=== PATIENT | male | born 1940 | race Caucasian/White ===

== ENCOUNTER 2019-01-30 14:08 | Inpatient (IN) | payer OTHER ==
[~2019-01-30] VITALS: Ht 172.7 cm; Wt 106.7 kg
--- NOTE | 2019-01-30 14:10 | NUR ---
PT BIBA FOR INCREASED EXACERBATION OF SOB THAT HAS BEEN PROGRESSIVELY GETTING WORSE FOR ONE MONTH. PT STS HE WAS WALKING INTO THE HOUSE FROM CAR WHEN HE FELT DIZZY AND FELT LIKE HE WASN'T GOING TO MAKE IT. PTS CALLED 911; PT STS CHEST HURTS IN THE CENTER AND RADIATES TO R AND L SHOULDER WITH INCREASED PAIN UPON PALPATION; PT STS PAIN IS ALSO EXACERBATED WHILE ANY PHYSICAL MOVEMENT OCCURS. AAOX4, RESPS E/U; DENIES N/V/D/C; CONNECTED TO FULL CM; CHANGED INTO GOWN, AWAITING MSE
--- NOTE | 2019-01-30 14:21 | NUR ---
EKG IN PROGRESS
--- NOTE | 2019-01-30 15:46 | NUR ---
PT EDUCATED ON MEDICATION PER EMAR, VERBALIZED UNDERSTANDING. MEDICATED AND TOLERATED WELL.
[2019-01-30 16:08] LABS: BASOPHIL % 0.8 % (0-2)
[2019-01-30 16:09] LABS: PLATELET COUNT 108 x10^3mcL (130-400); RED CELL DISTRIBUTION WIDTH 16.9 % (11.5-14.5)
[2019-01-30 16:31] LABS: CALCIUM 9.1 mg/dL (8.5-10.1); CARBON DIOXIDE 22.5 mmol/L (21-32); CHLORIDE SERUM 101 mmol/L (98-107); CREATININE SERUM 1.8 mg/dL (0.7-1.3); POTASSIUM SERUM 5.3 mmol/L (3.5-5.1); SODIUM SERUM 135 mmol/L (136-145)
[2019-01-30 16:32] LABS: ALKALINE PHOSPHATASE 235 U/L (46-116); ALT/SGPT 15 U/L (16-63); AST/SGOT 18 U/L (15-37); BILIRUBIN TOTAL 0.8 mg/dL (0.20-1.00)
[2019-01-30 16:33] LABS: ALBUMIN 3.2 g/dL (3.4-5.0)
[2019-01-30] MEDS ORDERED: KEFLEX500 M1 PO (16:45)
[2019-01-30] MEDS ORDERED: METFORMIN500 M1 PO (16:45)
[2019-01-30] MEDS ORDERED: APAP/OXYCODONE1 TA3 PO (16:45)
[2019-01-30] MEDS ORDERED: ALLOPURINOL100 MG PO (16:45)
[2019-01-30] MEDS ORDERED: ATENOLOL25 MG PO (16:45)
[2019-01-30] MEDS ORDERED: ZES10 PO (16:46)
[2019-01-30] MEDS ORDERED: ZOCOR10 MG PO (16:46)
[2019-01-30] MEDS ORDERED: MIRAPEX0.25 MG PO (16:46)
[2019-01-30] MEDS ORDERED: GLIPIZIDE10 M2 PO (16:46)
[2019-01-30] MEDS ORDERED: SINEMET 25-1001 TAB PO (16:46)
[2019-01-30] MEDS ORDERED: GOOD SENSE OMEP20 MG PO (16:47)
--- NOTE | 2019-01-30 16:47 | NUR ---
OK'D TO BE GIVEN WATER
[2019-01-30 17:03] LABS: GLUCOSE SERUM 569 mg/dL (74-106)
--- NOTE | 2019-01-30 17:20 | NUR ---
TAKEN TO CT VIA LILY
--- NOTE | 2019-01-30 17:41 | NUR ---
RETURNED FROM CT WITHOUT INCIDENCE
--- NOTE | 2019-01-30 18:40 | NUR ---
HEPARIN PE SHEET FILLED OUT AND SIGNED BY ; WITNESSED WITH JOLIE HERRERA; HARD COPY IN CHART.
--- NOTE | 2019-01-30 18:49 | NUR ---
PT EDUCATED ON MEDICATION PER EMAR, HEPARIN IS INFUSING PER EMAR; PT VERBALIZED UNDERSTANDING OF ALL RISK.
--- NOTE | 2019-01-30 18:54 | NUR ---
LAB AT BEDSIDE
--- NOTE | 2019-01-30 19:22 | NUR ---
REPORT RECEIVED FROM ISMAEL ZAVALETA RN. PT IS WES Reeder4 . PT IS SPEAKING IN CLEAR AND FULL SENTENCES. PT HAS BEEN HELPED TO ROTATE ONTO RIGHT SIDE FOR POSITION OF COMFORT. ALL MONITORS IN PLACE AT THIS TIME. RESIDENT AT BEDSIDE. PT PLACED PILLOW BETWEEN KNEES FOR COMFORT. PT STATES HE FEELS "MUCH BETTER BESIDES THE MILD CHEST PAIN AND SHORTNESS OF BREATHE DESEAN BEEN HAVING" PT STATES "BUT OTHER THAN THAT I FEEL FINE". CALL LIGHT WITHIN REACH. NAD AT THIS TIME. PT UPDATED THAT WE ARE WAITING FOR A BED AND THEN WILL TRY TO GET HIM IN A MORE COMFORTABLE BED.
[2019-01-30 19:44] LABS: AMYLASE 72 U/L (25-115); CHOLESTEROL 143 mg/dL (<200); CHOLESTEROL/HDL RATIO 3.6; HDL CHOLESTEROL 40 mg/dL (40-60); LIPASE 549 IU/L (73-393)
[2019-01-30 19:46] LABS: TRIGLYCERIDES 433 mg/dL (<150)
--- NOTE | 2019-01-30 19:54 | NUR ---
REPORT CALLED TO BERTA DAVE
[2019-01-30 20:26] LABS: microscopic required? YES; urine erythrocyte NEGATIVE (NEGATIVE)
[2019-01-30 20:35] LABS: AMPHETAMINE QUAL UR NONE DETECTED (See below)
[2019-01-30 20:42] VITALS: BP 158/95
--- NOTE | 2019-01-30 20:51 | NUR ---
RECEIVED PT FROM ER VIA GURNEY ACCOMPANIED WITH NURSE AND EMT, PT SEEN, ALERT AND ORIENTED, DENIES HEADACHE OR DIZZINESS, BREATHING EVEN AND UNLABORED WHILE RESTING IN BED, LUNG SOUNDS DIMINISHED, ON ROOM AIR WITH SPO2:97%, SOB ON EXERTION, PULSES PALPABLE, TRACE EDEMA NOTED TO BLE, MILD GENERALIZED WEAKNESS, AMBULATORY WITH CANE, ABD ROUND AND SOFT WITH ACTIVE BS, NO BM AT THIS TIME, VOIDING FREELY UPON ADMISSION, HEPARIN DRIP INFUSING @ 1900 UNITS/HR, PT'S BLOOD SUGAR:272 MG/DL, PRIMARY NURSE BERTA AT BEDSIDE, NO DISTRESS NOTED, WILL KEEP TO MONITOR.
--- NOTE | 2019-01-30 21:00 | NUR ---
RECEIVED PT AT THIS TIME. PT AAOX4. DENIES YUN/DIZZINESS. PT ON RA WITH NO SIGNS OF DISTRESS. TELE #6 SR HR 84. PT DENIES CHEST PAIN/PRESSURE. IV LH AND RAC. NO SIGNS OF ACUTE DISTRESS NOTED. CALL BUTTON WITHIN REACH. SAFETY PRECAUTIONS IN PLACE. WILL MONITOR.
--- NOTE | 2019-01-30 21:30 | NUR ---
DR ANDERSON MADE AWARE PT ACCU CHECK IS 272. PT WAS COVERED WITH HUMILIN R IN THE ED. PER DR ANDERSON NO INSULIN COVERAGE NEEDED AT THIS TIME. WILL MONITOR.
[2019-01-30 22:27] VITALS: BP 120/69
--- NOTE | 2019-01-31 00:44 | NUR ---
PT AWAKE. DENIES ANY PAIN. NO SOB NOTED. NO SIGNS OF DISTRESS. CALL BUTTON WITHIN REACH. SAFETY PRECAUTIONS IN PLACE. WILL CONTINUE TO MONITOR.
--- NOTE | 2019-01-31 02:25 | NUR ---
RECEIVED CRITICAL RESULT OF TROPONIN FORM LAB 0.101,INFORMED MADE AWARE OF RESULT.NO NEW ORDER GIVEN AT THIS TIME,PT IS ON HERPAIN DRIP.NO CHEST PAIN
--- NOTE | 2019-01-31 02:50 | NUR ---
PTT GREATER THAN 150. HEPARIN DRIP HELD. PTT ORDERED IN TWO HOURS PER PROTOCOL. NO BLEEDING/BRUISING NOTED. NO SIGNS OF DISTRESS. WILL MONITOR.
--- NOTE | 2019-01-31 04:52 | NUR ---
PT SLEPT MOST OF THE NIGHT WITH NO SIGNS OF DISTRESS NOTED. BREATHING EVEN AND UNLABORED WITHN NO SOB NOTED. PT DENIES CHEST PAIN. IV PATENT. PT USES URINAL AT BEDSIDE. MEDICATED PER EMAR. CALL BUTTON WITHIN REACH. SAFETY PRECAUTIONS IN PLACE. WILL CONTINUE TO MONITOR AND ENDORSE CARE TO DAY SHIFT RN.
[2019-01-31 05:19] LABS: BASOPHIL % 0.7 % (0-2)
[2019-01-31 05:27] LABS: CALCIUM 8.1 mg/dL (8.5-10.1); CARBON DIOXIDE 22.8 mmol/L (21-32); CHLORIDE SERUM 106 mmol/L (98-107); CREATININE SERUM 1.4 mg/dL (0.7-1.3); GLUCOSE SERUM 339 mg/dL (74-106); MAGNESIUM 1.8 mg/dL (1.8-2.4); PHOSPHOROUS 3.2 mg/dL (2.5-4.9); POTASSIUM SERUM 4.5 mmol/L (3.5-5.1); SODIUM SERUM 139 mmol/L (136-145)
[2019-01-31 05:28] LABS: PLATELET COUNT 88 x10^3mcL (130-400); RED CELL DISTRIBUTION WIDTH 17.1 % (11.5-14.5)
[2019-01-31 05:46] VITALS: BP 107/54
--- NOTE | 2019-01-31 06:00 | NUR ---
PTT 68.8 HEPARIN DRIP ADJUSTED PER PROTOCOL. HEPARIN DRIP AT 1700 UNITS/HR. NO BLEEDING/BRUISING NOTED. NO SIGNS OF DISTRESS. CALL BUTTON WITHIN REACH. SAFETY PRECAUTIONS IN PLACE. WILL MONITOR.
--- NOTE | 2019-01-31 07:28 | NUR ---
PT IN NO SIGNS OF DISTRESS. PT AWAKE BREATHING EVEN AND UNLABORED, NO SOB NOTED. IV PATENT INFUSING WELL. HEPARIN DRIP INFUSING WELL AT 1700 UNITS/HR. ENDORSED CARE TO DAY SHIFT RN, ALL QUESTIONS ADDRESSED.
--- NOTE | 2019-01-31 07:30 | NUR ---
PT IS AAOX4. RESP EVEN AND UNLABORED. LUNG SOUNDS DIMINISHED BILATERALLY. PT NOTED WITH SOB UPON EXERTION. NO COUGH. NO R/A. ABDOMEN SOFT, ROUND, NONTENDER, NONDISTENDED. BOWEL SOUNDS ACTIVE. DENIES N/V/D. SKIN CDI. NO EDEMA. PERIPHERAL PULSE PALPABLE. PT DENIES C/P AT THIS TIME. IV CATH TO RAC WITH FLUIDS RUNNING, SITE WNL. IV CATH TO L HAND WITH HEPARIN RUNNING AT 1700 UNITS/HOUR. SITE WNL. CALL LIGHT WITHIN REACH. BED IN LOW POSITION.
[2019-01-31 09:09] VITALS: BP 135/75
--- NOTE | 2019-01-31 09:14 | NUR ---
DR. MONSALVE MET WITH PT AND DISCUSSED POC. PT STATED HE HAD BEEN PREDOMINENTLY SEDENTARY DUE TO GOUT PAIN. DR. MONSALVE STATED SHE WILL LOOK OVER THE PT'S CHART AND COME BACK AND DISCUSS IT WITH HIM.
--- NOTE | 2019-01-31 09:23 | NUR ---
PT IS SITTING UP IN BED, RESP EVEN AND UNLABORED. PAIN STATED HIS C/P IS 2/10 AT THIS TIME. HE STATED PAIN MEDICATIONS IS NOT NEEDED. NO SOB NOTED. PT STATES SOB OCCURS WHEN AMBULATING TO BATHROOM. BED IN LOW POSITION. HEPARIN RUNNING TO LFA AT 1700 UNITS/HR. CALL LIGHT WITHIN REACH.
--- NOTE | 2019-01-31 10:10 | NUR ---
DR. HANCOCK AND MEDICAL TEAM MET WITH PT AND DISCUSSED POC. PT WILL REMAIN ON HEPARIN AND WILL START P/T TRAINING. PT WILL STAY IN HOSPITAL FOR TX AND EVALUATION FOR 2-3 DAYS. PT AGREED POC.
--- NOTE | 2019-01-31 11:28 | NUR ---
PT RECEIVING ECHO AT THIS TIME.
--- NOTE | 2019-01-31 12:25 | NUR ---
PT'S PTT 75 SEC. PER HEPARIN PROTOCOL HEPARIN DECREASED BY 200 UNITS PER HOUR. PT HEPARIN NOW RUNNING AT 1500 UNIT PER HOUR / 15 ML PER HOUR. NEW PTT ORDERED FOR 1530.
--- NOTE | 2019-01-31 12:57 | NUR ---
DUE MEDS GIVEN AND TOLERATED WELL. HEPARIN IV REPLENISHED. BS 289, 9 UNITS REG INSULIN GIVEN. PT DENIES C/P AT THIS TIME. NO DISTRESS NOTED. CALL LIGHT WITHIN REACH.
[2019-01-31 13:39] VITALS: BP 142/76
[2019-01-31 16:14] VITALS: BP 145/77
--- NOTE | 2019-01-31 17:22 | NUR ---
PTT 22.9. PT RECEIVED HEPARIN BOLUS OF 6400 UNITS AND HEPARIN DOSING WAS INCREASED BY 4ML PER / 400 UNITS/HR. HEPARIN DOSE AT THIS TIME IS 1900 UNITS PER HOUR/ 10ML PER HOUR. NEW PTT ORDERED FOR 212901/31/19. PT MADE AWARE. RESP EVEN AND UNLABORED. NO DISTRESS NOTED. PT DENIES C/P. CALL LIGHT WITHIN REACH.
--- NOTE | 2019-01-31 18:41 | NUR ---
PT IS AAOX4. RESP EVEN AND UNLABORED. NO DISTRESS NOTED. DENIES C/P AT THIS TIME. IV CATH TO RAC WITH FLUIDS RUNNING, SITE WNL. IV CATH TO LFA WITH HEPARIN RUNNING AT 1900 UNITS PER HOUR. SITE WNL. CALL LIGHT WITHIN REACH. BED IN LOWEST POSITION. WILL ENDORSE ALL CARE TO NOC JOLIE.
--- NOTE | 2019-01-31 19:30 | NUR ---
RECEIVED PT FROM DAY SHIFT RN. PT AAOX4. PT DENIES YUN/DIZZINESS. BREATHING EVEN AND UNLABORED WITH NO SOB NOTED. TELE 6 SR. PT DENIES CHEST PAIN/PRESSURE. PT AMBULATORY. IV LFA AND RAC. HEPARIN DRIP INFUSING AT 1900 UNITS/HR. NO BLEEDING/BRUISING. PT DENIES ANY DISTRESS. CALL BUTTON WITHIN REACH. SAFETY PRECAUTIONS IN PLACE. WILL MONITOR.
[2019-01-31 21:38] VITALS: Ht 172.7 cm; Wt 106.7 kg
[2019-01-31 21:53] VITALS: BP 136/77
--- NOTE | 2019-01-31 22:20 | NUR ---
PTT GREATER THAN 150, HEPARIN DRIP HELD AT THIS TIME PER PROTOCOL. NO BLEEDING/BRUISING. WILL FOLLOW HEPARIN PROTOCOL.
--- NOTE | 2019-02-01 00:10 | NUR ---
PT RESTING. BREATHING EVEN AND UNLABORED WITH NO SOB NOTED. NO SIGNS OF DISTRESS. CALL BUTTON WITHIN REACH. SAFETY PRECAUTIONS IN PLACE. WILL MONITOR.
--- NOTE | 2019-02-01 01:40 | NUR ---
PT PTT 51.7 PER HEPARIN PROTOCOL CONTINUE HEPARIN DRIP AT 1900 UNITS/HR. NO BLEEDING/BRUISING. WILL FOLLOW HEPARIN PROTOCOL.
--- NOTE | 2019-02-01 04:52 | NUR ---
PT SLEPT MOST OF THE NIGHT WITH NO SIGNS OF DISTRESS NOTED. BREATHING EVEN AND UNLABORED WITHN NO SOB NOTED. PT DENIES CHEST PAIN. IV PATENT INFUSING WELL. PT USES URINAL AT BEDSIDE. MEDICATED PER EMAR. CALL BUTTON WITHIN REACH. SAFETY PRECAUTIONS IN PLACE. WILL CONTINUE TO MONITOR AND ENDORSE CARE TO DAY SHIFT RN.
[2019-02-01 05:39] LABS: BASOPHIL % 0.8 % (0-2)
[2019-02-01 05:48] LABS: CALCIUM 8.7 mg/dL (8.5-10.1); CARBON DIOXIDE 20.6 mmol/L (21-32); CHLORIDE SERUM 108 mmol/L (98-107); CREATININE SERUM 1.4 mg/dL (0.7-1.3); GLUCOSE SERUM 239 mg/dL (74-106); MAGNESIUM 1.9 mg/dL (1.8-2.4); POTASSIUM SERUM 4.2 mmol/L (3.5-5.1); SODIUM SERUM 140 mmol/L (136-145)
[2019-02-01 05:52] VITALS: BP 143/83
[2019-02-01 06:00] LABS: PLATELET COUNT 88 x10^3mcL (130-400); RED CELL DISTRIBUTION WIDTH 17.7 % (11.5-14.5)
[2019-02-01 06:10] VITALS: BP 143/83
--- NOTE | 2019-02-01 07:00 | NUR ---
RECEIVED BEDSIDE REPORT FROM HVAC OPERATIONS TECHNICIAN NURSE. PATIENT IS STABLE, NO APPARENT SIGNS OF PAIN, SOB, OR RESPIRATORY DISTRESS. ON ROOM AIR. PATIENT ON HEPARIN DRIP 1900 UNITS/HR. LAST PTT 51.7. PATIENT RESTING COMFORTABLY IN BED. CALL LIGHT AND PHONE WITHIN REACH. BED IN LOW POSITION. IV TO RAC FOR NS. NO EDEMA OR ERYTHEMA NOTED. IV TO LFA FOR HEPARIN. NO EDEMA OR ERYTHEMA NOTED TO SITE. SAFETY PRECAUTIONS IN PLACE.
--- NOTE | 2019-02-01 07:30 | NUR ---
PT RESTING. NO SIGNS OF DISTRESS NOTED. HEPARIN DRIP AT 1900 UNITS/HR. NO BLEEDING/BRUISING. ENDORSED CARE TO DAY SHIFT RN, ALL QUESTIONS ADDRESSED.
--- NOTE | 2019-02-01 07:35 | NUR ---
RECEIVED CALL FROM LAB PTT 94.4.
--- NOTE | 2019-02-01 07:41 | NUR ---
PAGEIsai BETH ELSAYED TO MAKE AWARE PATIENT PTT 94.4. WAITING FOR MD TO CALL BACK.
--- NOTE | 2019-02-01 07:45 | NUR ---
PHYSICAL ASSESSMENT COMPLETED. PLEASE SEE PROBLEM FOCUSED CARE FOR DETAILS.
--- NOTE | 2019-02-01 08:12 | NUR ---
PER HEPARIN PROTOCOL. HEPARIN STOPPED FOR 1 HR.
--- NOTE | 2019-02-01 08:51 | NUR ---
ADMINISTERED MEDICATION PER EMAR. PATIENT EDUCATED ON NEED FOR MEDICATION, ASWELL ADVERSE EFFECTS TO REPORT. PATIENT VERBALIZED UNDERSTANIDING. QUESTIONS AND CONCERNS ADDERSSED, SAFETY PRECAUTIONS IN PLACE.
[2019-02-01 09:31] VITALS: BP 140/85
--- NOTE | 2019-02-01 09:41 | NUR ---
PHYSICAL THERAPY AT BEDSIDE
--- NOTE | 2019-02-01 10:00 | NUR ---
RECEIVGED ORDERS TO DC HEPARIN DRIP AND IVF. IVF AND HEPARIN DRIP DISCONTINUED.
--- NOTE | 2019-02-01 10:00 | NUR ---
RECEIVED ORDERS TO DC HEPARIN DRIP AND IVF. BOTH IVF AND HEPARIN DRIP DC'ED. PATIENT TOLORATED WELL. NO APPARENT SIGNS OF PAIN, SOB OR RESPIRATORY DISTRESS. PATIENT WAS SEEN AMBULATING WITH PHYISCAL THERAPY IN THE HALLWAY.
--- NOTE | 2019-02-01 11:36 | NUR ---
RECEIVED ORDERS TO TRANSFER PATEINT FROM TELE TO MED SURG. TELE MONITOR 6 REMOVED AND RETURNED.
[2019-02-01 13:12] VITALS: BP 149/89
--- NOTE | 2019-02-01 13:27 | NUR ---
PATIENT IS STABLE, NO APPARENT SIGNS OF PAIN, SOB OR RESPIRATORY DISTRESS. ON ROOM AIR. PATIENT DENIES OTHER NEEDS AT THIS TIME. CALL LIGHT WITHIN REACH. BED IN LOW POSITION. FAMILY AT BEDSIDE. SAFETY PRECAUTIONS IN PLACE.
[2019-02-01 17:12] VITALS: BP 138/78
--- NOTE | 2019-02-01 18:05 | NUR ---
PATIENT IS STABLE, NO APPARENT SIGNS OF PAIN, SOB, OR RESPIRATORY DISTRESS. IV TO RAC AND LFA ARE SALINE LOCKED. BOTH FLUSH WELL, NO EDEMA OR ERYTHEMA NOTED TO SITE. CALL LIGHT AND PHONE WITHIN REACH, BED IN LOW POSITION. PATIENT HAD HEPARIN DRIP AND IVF DISCONTINUED. ON XERALTO. PATIENT IS ALERT AND ORIENTED X4. QUESTIONS AND CONCERNS ADDRESSED, SAFETY PRECAUTIONS IN PLACE. WILL ENDORSE CARE TO SOLAR SALES AMBASSADOR NURSE.
--- NOTE | 2019-02-01 19:24 | NUR ---
ENDORSED CARE TO MANAGER WEB APPLICATION NURSE
--- NOTE | 2019-02-01 19:35 | NUR ---
RECEIVED REPORT FROM DAY SHIFT RN. PT RESTING IN BED. AA&O X4. NO SOB ON ROOM AIR. NO C/O CHEST PAIN. NO DISTRESS NOTED. IV TO RAC AND LFA SALINE LOCKED. SAFETY MEASURE IN PLACE. BED IN LOWEST POSITION. SIDE RAILS UP X2. INSTRUCTED PT TO USE THE CALL LIGHT FOR ASSISTANCE. CALL LIGHT WITHIN REACH.
[2019-02-01 20:37] VITALS: BP 148/75
--- NOTE | 2019-02-02 00:45 | NUR ---
PT RESTING WITH EYES CLOSED. BREATHING EVEN AND UNLABORED ON ROOM AIR. NO DISTRESS NOTED. CALL LIGHT WITHIN REACH. WILL CONTINUE TO MONITOR.
[2019-02-02 06:17] VITALS: BP 123/74
[2019-02-02 06:32] LABS: CALCIUM 8.5 mg/dL (8.5-10.1); CARBON DIOXIDE 21.5 mmol/L (21-32); CHLORIDE SERUM 108 mmol/L (98-107); CREATININE SERUM 1.2 mg/dL (0.7-1.3); GLUCOSE SERUM 223 mg/dL (74-106); MAGNESIUM 1.5 mg/dL (1.8-2.4); PHOSPHOROUS 3.9 mg/dL (2.5-4.9); POTASSIUM SERUM 4.3 mmol/L (3.5-5.1); SODIUM SERUM 140 mmol/L (136-145)
--- NOTE | 2019-02-02 06:36 | NUR ---
PT SLEPT WELL DURING SHIFT. NO SOB ON ROOM AIR. NO C/O PAIN. NO ACUTE DISTRESS NOTED. AMBULATES TO THE BATHROOM. CANE AT BEDSIDE. SAFETY MEASURES MAINTAINED. CALL LIGHT WITHIN REACH. WILL ENDORSE CONTINUITY OF CARE TO DAY SHIFT RN.
[2019-02-02 06:50] LABS: PLATELET COUNT 101 x10^3mcL (130-400); RED CELL DISTRIBUTION WIDTH 17.3 % (11.5-14.5)
--- NOTE | 2019-02-02 07:00 | NUR ---
RECEIVED BEDSIDE REPORT FROM TEACHER DRAMA NURSE GRAY. PATIENT IS STABLE NO APPARENT SIGNS OF PAIN, SOB, OR RESPIRATORY DISTRESS. PATIENT RESTING COMFORTABLY INBED. DENIES PAIN, SOB. ON RROM AIR. IV TO RAC, LFA INTACT. NO EDEMA OR ERYTHEMA NOTED TO SITE. BED IN LOW POSITION. CALL LIGHT AND PHONE WITHIN REACH. PATIENT DENIES OTHER NEEDS AT THIS TIME. QUESTIONS AND CONCERNS ADDRESSED. SAFETY PRECAUTIONS IN PLACE.
--- NOTE | 2019-02-02 08:59 | NUR ---
ADMINISTERED MEDICATIONS PER EMAR. CHIO EDUCATED ON NEED FOR MEDICATION WELL ADVERSE EFFECTS TO REPORT. VERBALIZED UNDERSTANDING. QUESTIONS AND CONCERNS ADDRESSED. SAFETY PRECAUTIONS IN PLACE.
[2019-02-02 09:04] VITALS: BP 135/65
--- NOTE | 2019-02-02 09:43 | NUR ---
ATTENDING AND RESIDENT TEAM ROUNDING AT BED SIDE
--- NOTE | 2019-02-02 10:03 | NUR ---
PATIENT IS SATBLE, NO APPARENT SIGNS OF PAIN, SOB, OR RESPIRATORY DISTRESS, ON RROM AIR. PATIENT IS RESTING COMFORTABLY IN BED, DENIES PAIN AT THIS TIME. DENIES OTHER NEED AT THIS TIME. QUESTIONS AND CONCERNS REGARDING POSSIBLE DISCHARGE ADDRESSED. SAFETY PRECAUTIONS IN PLACE. CALL LIGHT AND PHONE WITHIN REACH. BED IN LOW POSITION.
--- NOTE | 2019-02-02 10:21 | NUR ---
PHYSICAL THERAPY SHAHIDA AT BEDSIDE.
--- NOTE | 2019-02-02 10:45 | NUR ---
PATIENT IS SITTING COMFORTABLY AT BEDSIDE CHAIR. PATIENT DENIES PAIN, SOB, OR RESPIRATORY DISTRESS. PATIENT DENEIS OTHER NEEDS AT THIS TIME. CALL LIGHT WITHIN REACH. SAFETY PRECAUTIONS IN PLACE.
[2019-02-02] MEDS ORDERED: XARELTO15 M1 PO (11:07)
[2019-02-02] MEDS ORDERED: XARELTO10 M1 PO (11:09)
--- NOTE | 2019-02-02 11:29 | NUR ---
ADMINISTERED MEDICATIONS PER EMAR. CHIO EDUCATED ON NEED FOR MEDICATION WELL ADVERSE EFFECTS TO REPORT. VERBALIZED UNDERSTANDING. QUESTIONS AND CONCERNS ADDRESSED. SAFETY PRECAUTIONS IN PLACE.
[2019-02-02 11:38] VITALS: BP 135/65
--- NOTE | 2019-02-02 12:23 | NUR ---
ADMINISTERED MEDICATIONS PER EMAR. CHIO EDUCATED ON NEED FOR MEDICATION WELL ADVERSE EFFECTS TO REPORT. VERBALIZED UNDERSTANDING. QUESTIONS AND CONCERNS ADDRESSED. SAFETY PRECAUTIONS IN PLACE.
--- NOTE | 2019-02-02 12:51 | NUR ---
PATIENT IS STABLE, NO APPARENT SIGNS OF PAIN, SOB, OR RESPIRATORY DISTRESS. PATIENT DENIES PAIN AT THIS TIME. PATIENT GIVEN DISCHARGE AND FOLLOW UP INSTRUCTIONS. PERSCRIPTIONS FOR MEDICATIONS HANDED TO PATIENT. PATIENT VERBALIZED UNDERSTANDNING OF INSTRUCTIONS. AT BEDSIDE. IV REMOVED, ID BANDS REMOVED. ALL PERSONAL BELONGINGS WITH PATIENT. PATIENT TAKEN DOWN VIA WHEELCHAIR. BY TRAUMA THERAPIST. DISCHARGE COMPLETE.
== END 2019-02-02 12:56 | disposition home or self-care (01) | DRG 280 ==
LOC: ED 14:08 → DU 19:09 → MU 02-01 11:44
PROVIDERS: Emergency Medicine; ADMIT Internal Medicine
DX: T81.718A Complication of other artery following a procedure, not elsewhere classified, initial encounter (principal); N17.0 Acute kidney failure with tubular necrosis; I21.A1 Myocardial infarction type 2; E44.0 Moderate protein-calorie malnutrition; E87.1 Hypo-osmolality and hyponatremia; I74.8 Embolism and thrombosis of other arteries; E11.65 Type 2 diabetes mellitus with hyperglycemia; I10 Essential (primary) hypertension; E87.5 Hyperkalemia; R80.9 Proteinuria, unspecified; M10.9 Gout, unspecified; G25.81 Restless legs syndrome; E78.5 Hyperlipidemia, unspecified; Z96.642 Presence of left artificial hip joint; Z68.35 Body mass index [BMI] 35.0-35.9, adult; Z79.01 Long term (current) use of anticoagulants; Z79.84 Long term (current) use of oral hypoglycemic drugs; Y83.4 Other reconstructive surgery as the cause of abnormal reaction of the patient, or of later complication, without mention of misadventure at the time of the procedure; Y92.009 Unspecified place in unspecified non-institutional (private) residence as the place of occurrence of the external cause
CPT/HCPCS: 82962; 83880; 85378; 97116-GP; 97530-GP; G0378; J1644; J1815; J7030; J7620; Q0092; Q9967